=== PATIENT | female | born 1995 | race Caucasian/White ===

== ENCOUNTER 2017-04-06 06:27 | Emergency (ER) | payer OTHER ==
--- NOTE | 2017-04-06 07:07 | ERPHSYRPT ---
- History of Present Illness Time Seen by Provider: 04/06/17 06:45 Historian: patient, family Exam Limitations: no limitations Patient Subjective Stated Complaint: pt has co upper abd pain off and on since august -this week it is worse-she saw [facility] last week and has plans to see darnell carlos monday for further work up -the pain is sharp and radiates to her back feels cold at times no fever Triage Nursing Assessment: pt is awake and aalert and able to answer questions Physician History: the patient presents with upper abdominal pain intermittently since August; no history before that; pain coming more frequently and more severely; no nausea or vomiting; no fever or chills; normal bowel movements and normal urination without symptoms; pain in the upper abdomen and radiates to the back; no travel and no exposures; no family history; otherwise healthy; pain was a 10 over 10 now 0; patient thinks it's gb; will get ultrasound Timing/Duration: today, hour(s) (3), improved Activities at Onset: sleep Quality: fullness, sharpness Abdominal Pain Onset Location: epigastric Pain Radiation: back Severity of Pain-Max: severe Severity of Pain-Current: mild Modifying Factors: Improves With: nothing Associated Symptoms: back, loss of appetite Previous symptoms: same symptoms as today Allergies/Adverse Reactions: No Known Drug Allergies Allergy (Unverified 03/21/12 20:09) Home Medications: Omeprazole 20 MG [Prilosec 20 mg] 20 mg DAILY 04/06/17 [History] Hx Tetanus, Diphtheria Vaccination/Date Given: Yes Hx Influenza Vaccination/Date Given: No Hx Pneumococcal Vaccination/Date Given: No - Review of Systems Constitutional: No Symptoms Eyes: No Symptoms Ears, Nose, & Throat: No Symptoms Respiratory: No Cough, No Dyspnea, No Wheezing Cardiac: No Chest Pain, No Palpitations, No Syncope Abdominal/Gastrointestinal: No Abdominal Pain, No Nausea, No Vomiting, No Diarrhea Genitourinary Symptoms: No Symptoms Musculoskeletal: No Symptoms Skin: No Symptoms Neurological: No Symptoms Psychological: No Symptoms Endocrine: No Symptoms Hematologic/Lymphatic: No Symptoms Immunological/Allergic: No Symptoms - Past Medical History Pertinent Past Medical History: Yes Neurological History: No Pertinent History ENT History: No Pertinent History Cardiac History: No Pertinent History Respiratory History: No Pertinent History Endocrine Medical History: No Pertinent History Musculoskeletal History: No Pertinent History GI Medical History: No Pertinent History History: No Pertinent History Psycho-Social History: No Pertinent History Female Reproductive Disorders: No Pertinent History Other Medical History: pilonidal cyst - Past Surgical History Past Surgical History: Yes Neuro Surgical History: No Pertinent History Cardiac: No Pertinent History Respiratory: No Pertinent History Gastrointestinal: Other Genitourinary: No Pertinent History Musculoskeletal: No Pertinent History Female Surgical History: No Pertinent History Other Surgical History: pilonidal cyst and wisdom teeth - Social History Smoking Status: Light tobacco smoker Exposure to second hand smoke: No Alcohol Use: Socially Drug Use: none Patient Lives Alone: No (lives with family,works in daycare) Significant Family History: no pertinent family hx - Female History Hx Last Menstrual Period: 2 weeks ago Hx Now: No - Nursing Vital Signs Nursing Vital Signs: Initial Vital Signs Temperature 98.5 F 04/06/17 06:38 Pulse Rate 78 04/06/17 06:38 Respiratory Rate 16 04/06/17 06:38 Blood Pressure 132/87 04/06/17 06:38 O2 Sat by Pulse Oximetry 99 04/06/17 06:38 Pain Scale Pain Intensity 10 - Physical Exam General Appearance: mild distress, alert, obese Eye Exam: PERRL/EOMI, eyes nml inspection, No photophobia Ears, Nose, Throat Exam: normal ENT inspection, TMs normal, pharynx normal, moist mucous membranes Neck Exam: normal inspection, non-tender, supple, full range of motion, No meningismus Respiratory Exam: normal breath sounds, lungs clear, airway intact, No chest tenderness, No respiratory distress, No accessory muscle use, No rhonchi, No wheezing Cardiovascular Exam: regular rate/rhythm, normal heart sounds, normal peripheral pulses, No murmur Gastrointestinal/Abdomen Exam: soft, normal bowel sounds, tenderness (epigastric ; right upper quadrant; and slight and right lower quadrant), No mass, No guarding, No pulsatile mass, No rebound, No hernia, No organomegaly Pelvic Exam: deferred Rectal Exam: deferred Back Exam: normal inspection, normal range of motion, No CVA tenderness, No vertebral tenderness, No rash Extremity Exam: normal inspection, normal range of motion, No rosario's sign, No pedal edema Neurologic Exam: alert, oriented x 3, cooperative, hop grower II-XII nml as tested, normal mood/affect, nml cerebellar function, nml station & gait Skin Exam: normal color, warm, dry, No rash Lymphatic Exam: No adenopathy SpO2 Interpretation: normal SpO2: 99 Oxygen Delivery: Room Air - Course Nursing assessment & vital signs reviewed: Yes - Radiology Ultrasound Exam Gallbladder Ultrasound: tele radiology report, gall bladder stones Ordered Tests: Active Orders 24 hr Category Date Time Status Clean Catch Urine Specimen STAT Care 04/06/17 07:20 Active IV Insertion STAT Care 04/06/17 07:19 Active NPO (ED) STAT Care 04/06/17 07:00 Active GALLBLADDER [US] Stat Exams 04/06/17 07:01 Ordered AMYLASE Stat Lab 04/06/17 07:15 Completed CBC W DIFF Stat Lab 04/06/17 07:20 Completed CMP Stat Lab 04/06/17 07:15 Completed CULTURE,URINE Stat Lab 04/06/17 07:00 Received LIPASE Stat Lab 04/06/17 07:15 Completed UA W/ MICROSCOPIC Stat Lab 04/06/17 07:00 Completed Lab/Rad Data: Laboratory Result Diagrams 04/06/17 07:20 04/06/17 07:15 Laboratory Results 04/06/17 04/06/17 04/06/17 Range/Units 07:20 07:15 07:00 WBC 8.5 (4.0-10.5) K/mm3 RBC 4.49 (4.1-5.4) M/mm3 Hgb 13.1 (12.0-16.0) gm/dl Hct 39.8 (35-47) % MCV 88.6 (78-100) fl MCH 29.2 (26-32) pg MCHC 32.9 (32-36) g/dl RDW 12.8 (11.5-14.0) % Plt Count 266 (150-450) K/mm3 MPV 10.2 H (6-9.5) fl Gran % 59.2 (36.0-66.0) % Lymphocytes % 31.4 (24.0-44.0) % Monocytes % 7.4 (0.0-12.0) % Eosinophils % 1.8 (0.00-5.0) % Basophils % 0.2 (0.0-0.4) % Basophils # 0.02 (0-0.4) Sodium 143 (136-145) mEq/L Potassium 3.9 (3.5-5.1) mEq/L Chloride 108 H (98-107) mEq/L Carbon Dioxide 23.9 (21-32) mEq/L Anion Gap 15.0 (5-15) MEQ/L BUN 14 (9-20) mg/dL Creatinine 0.81 (0.55-1.30) mg/dl Estimated GFR > 60 ML/MIN Glucose 96 (70-110) MG/DL Calcium 8.8 (8.5-10.1) mg/dL Total Bilirubin 0.30 (0.2-1.0) mg/dL AST 17 (15-37) U/L ALT 25 (12-78) U/L Alkaline Phosphatase 62 (46-116) U/L Serum Total Protein 7.0 (6.4-8.2) gm/dL Albumin 3.6 (3.4-5.0) g/dL Amylase 40 (25-115) U/L Lipase 107 (73-393) U/L Ur Collection Type VOID Urine Color YELLOW (YELLOW) Urine Appearance HAZY (CLEAR) Urine pH 6.5 (5-6) Ur Specific [place] 1.015 (1.005-1.025) Urine Protein NEGATIVE (Negative) Urine Ketones NEGATIVE (NEGATIVE) Urine Blood NEGATIVE (0-5) [place]/ul Urine Nitrite NEGATIVE (NEGATIVE) Urine Bilirubin NEGATIVE (NEGATIVE) Urine Urobilinogen NORMAL (0-1) mg/dL Ur Leukocyte Esterase 1+ (NEGATIVE) Urine Microscopic WBC 5-10 (0-5) /HPF Ur Epithelial Cells MANY (FEW) /HPF Urine Bacteria MODERATE (NEGATIVE) /HPF Urine Glucose NEGATIVE (NEGATIVE) mg/dL Specimen Received 04/06/17 0700 reviewed - Progress Progress: unchanged (no change), improved, re-examined (After labs and ultrasou) Progress Note: 04/06/17 07:09 family and fiance at bedside; will obtain appropriate work; we'll obtain ultrasound; patient has been nothing by mouth since 9 PM last night; treatment plan discussed with patient and family and concur; patient without pain at this time 04/06/17 07:46 awaiting US exam; family at bedside; cbc wnl; no pain; VS ok on recheck 04/06/17 07:55 labs reviewed and all WNL; patietn and family informed; GB US pending; no change in exam 04/06/17 08:03 U/A showed hazy; 6.5 ph; 1+ leukocyte and 5-10 wbc with mod bact; will culture and treat; patient and family informed; 04/06/17 08:28 patient returned form US; multiple gallstones; no pain now; discussed findings; patient will get ATBSs for uti and follow up with lmd for referral for gallstone ; GB diet and meds given and instructions 04/06/17 08:29 Counseled pt/family regarding: lab results, diagnosis, need for follow-up, rad results - Departure Time of Disposition: 08:29 Departure Disposition: Home Clinical Impression: UTI (urinary tract infection) Condition: Stable Critical Care Time: No Referrals: GENA CARLOS, NASEEM [Primary Care Provider] - Instructions: Urinary Tract Infection (UTI), Abdominal Pain-Adult, Gallstones Additional Instructions: encourage fluid; take ATBs as prescribed; have urine rechecked by lmd 10-14 days clear fluids; GB diet; call lmd for recheck and referral for gall stones; take meds as prescribed Follow-up with family doctor as directed. Call for appointment. Return if any problems. If you smoke please stop. Call or follow up with your family doctor for assistance if you need it to stop. Please wear your seatbelt when driving. Have a nice day. Thank you for allowing us to participate in your care today. :o) Dr Mak Cabrera Prescriptions: Hydrocodone/Acetaminophen [Vicodin 5-300 mg Tablet] 1 each PO Q6-8HPRN PRN #14 tablet PRN Reason: Pain Sulfamethoxazole/Trimethoprim [Bactrim 400-80 mg Tablet] 1 each PO BID #14 tablet
[2017-04-06 07:27] LABS: BASOPHIL % 0.2 % (0.0-0.4); Eosinophil % 1.8 % (0.00-5.0); Granulocytes % 59.2 % (36.0-66.0); Lymphocytes % 31.4 % (24.0-44.0); Mean Cell Volume 88.6 fl (78-100); Mean Corpuscular Hemoglobin 29.2 pg (26-32); Mean Platelet Volume 10.2 fl (6-9.5); Monocytes % 7.4 % (0.0-12.0); Platelet Count 266 K/mm3 (150-450); Red Blood Count 4.49 M/mm3 (4.1-5.4); Red Cell Distribution Width 12.8 % (11.5-14.0); White Blood Count 8.5 K/mm3 (4.0-10.5)
[2017-04-06 07:49] LABS: ALBUMIN 3.6 g/dL (3.4-5.0); ALKALINE PHOSPHATASE 62 U/L (46-116); BLOOD UREA NITROGEN 14 mg/dL (9-20); CHLORIDE 108 mEq/L (98-107); Carbon Dioxide 23.9 mEq/L (21-32); Glucose 96 MG/DL (70-110); LIPASE 107 U/L (73-393); Potassium 3.9 mEq/L (3.5-5.1); SGOT/AST 17 U/L (15-37); SGPT/ALT 25 U/L (12-78); SODIUM 143 mEq/L (136-145)
[2017-04-06 07:56] LABS: Collection Type VOID; Glucose NEGATIVE (NEGATIVE); Leukocyte Esterase 1+ (NEGATIVE)
[2017-04-06 07:57] LABS: ADD URINE CULTURE? YES (NO); Bacteria MODERATE /HPF (NEGATIVE); Bilirubin NEGATIVE (NEGATIVE); Blood NEGATIVE Ery/ul (0-5); COMPLETE URINE MICROSCOPIC? YES; Epithelial Cells MANY /HPF (FEW)
[2017-04-06 08:40] VITALS: BP 128/76; PULSE 78; O2SAT 96
--- NOTE | 2017-04-06 08:55 | XRAY ---
Indication: Upper abdominal pain for 6 months. Two-dimensional right upper quadrant abdominal sonogram performed. Comparison: None Gallbladder demonstrates numerous tiny gallstones in the dependent portion. No gallbladder wall thickening or pericholecystic fluid. Common bile duct measures 4.8 mm. No intrahepatic biliary distention. Remaining visualized portions of the liver, pancreas, and right kidney appear sonographically unremarkable. Right kidney measures 10.6 cm in length. No ascites. Impression: Gallstones. Negative for cholecystitis or biliary distention.
== END 2017-04-06 08:39 | disposition home or self-care (01) ==
LOC: ED 06:27
DX: N39.0 Urinary tract infection, site not specified (principal); R10.10 Upper abdominal pain, unspecified; R10.13 Epigastric pain; M54.9 Dorsalgia, unspecified; R63.0 Anorexia
CPT/HCPCS: 36000; 36415; 76705; 80053; 81000; 82150; 83690; 85025; 87086; 99284

== ENCOUNTER 2017-05-11 10:32 | Day surgery (SDC) | payer OTHER ==
--- NOTE | 2017-05-10 07:32 | HP ---
DATE OF SURGERY: 05/11/2017 ANTICIPATED PROCEDURE: Laparoscopic cholecystectomy. HISTORY OF PRESENT ILLNESS: The patient has had trouble since August and just for the last month right upper quadrant going to the right shoulder. Seen and examined. She does have diagnosis of cholelithiasis. Procedure discussed in detail and she wished to proceed. PAST MEDICAL HISTORY: ALLERGIES: NONE. MEDICATIONS: None. PAST SURGICAL HISTORY: Tailbone cyst removal. SOCIAL HISTORY: Negative. FAMILY HISTORY: Negative. REVIEW OF SYSTEMS: Negative. PHYSICAL EXAMINATION: VITAL SIGNS: Normal. CHEST: Clear. COR: Regular. IMPRESSION: Symptomatic cholecystitis. PLAN: Laparoscopic cholecystectomy.
[~2017-05-11 10:32] MED LIST: Lactated Ringers 1,000 ML IV ONE; Lactated Ringers 1,000 ML IV SCH; MEFOXIN 2 GM PREMIX** 2 GM/50 ML ML IV ONE; Sensorcaine 0.25% 10 ML ONE
[2017-05-11] MEDS ORDERED: SUBLIMAZE 100 MCG/2 ML IV ONE (10:33)
[2017-05-11] MEDS ORDERED: TORAdol 30 mg Injection IJ ONE (10:33)
[2017-05-11] MEDS ORDERED: Versed 2 MG/2 ML Injection IV ONE (10:33)
[2017-05-11] MEDS ORDERED: DIPRIVAN 200 MG/20 ML IV ONE (10:33)
[2017-05-11] MEDS ORDERED: Zofran 4 MG/2 ML VIAL IV ONE (10:33)
[2017-05-11] MEDS ORDERED: Decadron 4 MG INJ IV ONE (10:33)
[2017-05-11] MEDS ORDERED: Zemuron 100 MG/10 ML IJ ONE (10:33)
[2017-05-11] MEDS ORDERED: Quelicin Fliptop 200 MG/10 ML IJ ONE (10:33)
[2017-05-11] MEDS ORDERED: BRIDION 200MG/2ML IV ONE (10:33)
[2017-05-11] MEDS ORDERED: Lactated Ringers 1,000 ML IV ONE (12:44)
[2017-05-11] MEDS ORDERED: DILAUDID 2 MG INJECTION ONE (13:09)
[2017-05-11] MEDS ORDERED: SUBLIMAZE 100 MCG/2 ML ONE (13:16)
[2017-05-11] MEDS ORDERED: BENADRYL 50 MG/ML ONE (13:22)
[2017-05-11 14:13] VITALS: O2SAT 94
[2017-05-11 14:26] VITALS: BP 129/67; PULSE 67
--- NOTE | 2017-05-12 09:21 | OP ---
SURGERY DATE/TIME: 05/11/2017 1213 PREOPERATIVE DIAGNOSIS: Symptomatic cholelithiasis. POSTOPERATIVE DIAGNOSIS: Symptomatic cholelithiasis. PROCEDURE: Laparoscopic cholecystectomy. SURGEON: Dr. English. ANESTHESIA: General endotracheal tube. COMPLICATIONS: None. CONDITION: Stable. INDICATIONS: A patient with symptomatic cholelithiasis. DESCRIPTION OF PROCEDURE AND FINDINGS: General anesthetic, routine prep and drape. Veress needle inserted right upper quadrant. Good visualization. Four - 5's. Gallbladder was distended, filled with stones. Cystic duct defined. Cystic artery defined. Both structures triply clipped and transected. Clips noted to be across and well approximated. Gallbladder rolled out of gallbladder fossa. The gallbladder delivered through upper abdominal port. Field is clean and dry. CO2 exsufflated. After the ports were closed with a hole closure device. Skin closed with kera, sterile dressings.
== END 2017-05-11 15:00 | disposition home or self-care (01) ==
LOC: SDC 10:32
PROVIDERS: ATTEND Surgery
PROC: 0FT44ZZ Resection of Gallbladder, Percutaneous Endoscopic Approach (ICD-10-PCS; principal; 2017-05-11)
DX: K80.20 Calculus of gallbladder without cholecystitis without obstruction (principal)
CPT/HCPCS: 00790; 36415; 88304; J0330; J0694; J1100; J1170; J1200; J1885; J2250; J2405; J2704; J3010